=== PATIENT | male | born 1995 | race Caucasian/White ===

== ENCOUNTER 2017-06-19 22:16 | Emergency (ER) | payer SELFPAY ==
--- NOTE | 2017-06-19 22:44 | ERNOTE ---
Time Seen by Provider: 06/19/17 22:39 Stated Complaint: FLU SYMPTOMS Presenting Symptoms:: cough, sore throat, runny nose Source: patient Exam Limitations: no limitations Immunizations: IMMUNIZATION HX Immunizations Up to Date Yes Allergies/Adverse Reactions: Allergies No Known Allergies Allergy (Unverified 06/19/17 22:21) Home Medications: HOME MEDICATIONS NK [No Home Medication] 06/19/17 [Last Taken Unknown] - History of Present Ilness Narrative: Pt had influenza 2 weeks ago. He states he has been better for a week and then the symptoms have returned. Timing: getting worse Severity: moderate Frequency/Possible Cause: Reports: occasional episodes Modifying Factors - Improves: Reports: antibiotics Modifying Factors - Worsens: Reports: lying down Review of Systems - Review of Systems Constitutional: Present: recent illness, fever, chills, fatigue EYE: Present: no symptoms reported Respiratory: Present: See HPI, shortness of breath, cough Cardiology: Present: no symptoms reported Gastrointestinal/Abdominal: Present: nausea, vomiting Genitourinary: Present: no symptoms reported Musculoskeletal: Present: muscle pain Skin: Present: no symptoms reported Neurological: Present: no symptoms reported Endocrine: Present: excessive sweating Hematologic/Lymphatic: Present: no symptoms reported Psych: Present: no symptoms reported - Patient's Past Medical History Patient History - Medical: Anemia Patient History - Cardiac/Respiratory: No pertinent hx Patient History - Cancer: No Hx of Cancer Patient History - Surgical Procedures: Appendectomy, Cholecystectomy Patient History - Other: None - Social History Living Situations: home Psych History: No pertinent hx Smoking Status: Current every day smoker Alcohol Use: occasionally Drug Use: none - Immunizations Immunizations Up to Date: Yes Physical Exam - Physical Exam General Appearance: Present: wd/wn, alert, mild distress Head Exam: Present: normal inspection, no evidence of injury Eye Exam: Normal inspection: bilateral Ears, Nose, Throat: Present: nasal congestion, pharyngeal erythema. Absent: tonsillar exudate, tonsillar swelling Neck: Present: normal inspection, nontender Respiratory: Present: no respiratory distress, normal breath sounds, lungs clear Cardiovascular/Chest: Present: regular rate, rhythm, no murmur, normal peripheral pulses Extremity Exam: Present: normal inspection, normal range of motion, no edema Neurological Exam: Present: alert, oriented, no motor/sensory deficits Skin Exam: Present: normal color, warm/dry Lymphatic Exam: Present: no adenopathy ED Progress - Results and Orders Patient's Lab Results:: I have reviewed the patient's lab results. Results and Orders: Laboratory Tests 06/19/17 22:43 Influenza Type A Ag Negative Influenza Type B Ag Positive H - Vital Signs Patient's Vital Signs:: I have reviewed the patient's vital signs. Vital Signs: Vital Signs 06/19/17 22:19 Temperature 37.2 C Pulse Rate 111 H Respiratory 15 Rate Blood Pressure 155/79 O2 Sat by Pulse 95 Oximetry - Progress/Reassessment Chief Complaint: Upper Respiratory Symptoms Progress:: Unchanged Departure Clinical Impression: Influenza B - Departure Disposition: Home self-care Condition: Good Instructions: Influenza, Adult, [id number] Additional Instructions: avoid contact with others until you are feeling better. Drink plenty of fluids and get plenty of rest
[2017-06-19] MEDS ORDERED: ACETAMINOPHEN 325 MG TABLET ONE (22:47)
[2017-06-19] MEDS: ACETAMINOPHEN 325 MG TABLET PO ONE (22:48)
[2017-06-19 23:27] VITALS: BP 141/69
== END 2017-06-19 23:26 | disposition home or self-care (01) ==
LOC: ER 22:16
DX: J10.1 Influenza due to other identified influenza virus with other respiratory manifestations (principal); F17.200 Nicotine dependence, unspecified, uncomplicated